=== PATIENT | male | born 1935 | race Caucasian/White ===

== ENCOUNTER 2018-08-05 13:19 | Inpatient (IN) ==
--- NOTE | 2018-08-05 13:52 | ED ---
HPI General Chief Complaint: Chest Pain Stated Complaint: chest pain/left arm numbness Time Seen by Provider: 08/05/18 13:33 Source: patient and family Mode of arrival: ambulatory Limitations: no limitations History of Present Illness HPI narrative: 83-year-old male the presents to the ED for evaluation of chest pain. Patient has had chest pain since today. Per patient he woke up with this. Patient has shortness of breath also with exertion. States having a history of heart disease in the past having had a stent as well as open heart surgery in the past. Last time 2011. He follows with the [facility] for his care. He took a baby aspirin today. Has a history of high blood pressure, diabetes and CHF. Per patient he has not gained any weight. He does not use oxygen at home. He denies smoking. States that the pain does radiate to his left arm and feels like a numbness or tingling. Denies any headache. No neck pain. No blurry vision or double vision. Denies any urinary or bowel movement issues. No fevers chills or sweats. Has not seen anybody for this. Per patient the pain is 6 out of 10. Feels more like a pressure than an actual pain. Like something sitting on his chest. No recent travel or surgeries. Related Data Allergies Allergy/AdvReac Type Severity Reaction Status Date / Time No Known Allergies Allergy Verified 08/05/18 13:37 Review of Systems ROS: all other systems reviewed are negative REPLACED BY [facility] Medical History Medical History CAD (coronary artery disease) (Acute) Cataract (Acute) HTN (hypertension) (Acute) High cholesterol (Acute) Surgical History Surgical History History of tonsillectomy (Acute) Hx of cardiac cath (Acute) S/P CABG x 5 (Acute) Stented coronary artery (Acute) Family History Family History Other Heart attack Social History Social History Substance History: No History of Abuse Second Hand Smoke Exposure: No Smoking Status: Former smoker Tobacco Type: Cigarettes How Often Do You Have a Drink Containing Alcohol: 2 to 3 times a week Recent Travel in [facility] within the Last 8 Weeks: No Recent Out of Country Travel within the Last 8 Weeks: No Immunization History Tetanus Immunization: <5 Years Exam Narrative Exam Narrative: GENERAL: Well appearing SKIN: Focused skin assessment warm/dry. HEAD: Atraumatic. Normocephalic. EYES: Pupils equal and round. No scleral icterus. No injection or drainage. ENT: No nasal bleeding or discharge. Mucous membranes pink and moist. Tongue is midline. No uvula deviation. NECK: Trachea midline. No JVD. CARDIOVASCULAR: Regular rate and rhythm. No murmur appreciated. RESPIRATORY: No accessory muscle use. Clear to auscultation. Breath sounds equal bilaterally. GASTROINTESTINAL: Abdomen soft, non-tender, nondistended. Hepatic and splenic margins not palpable. MUSCULOSKELETAL: No obvious deformities. No clubbing. No cyanosis. No edema. Full range of motion of the upper and lower extremities bilaterally. 2+ pulses bilaterally. NEUROLOGICAL: Awake and alert. No obvious cranial nerve deficits. Motor grossly within normal limits. Normal speech. PSYCHIATRIC: Appropriate mood and affect; insight and judgment normal. Course Initial Documented Vital Signs Pulse Rate 57 L 08/05/18 13:32 Respiratory Rate 20 08/05/18 13:32 Blood Pressure 179/84 H 08/05/18 13:32 Pulse Oximetry 97 08/05/18 13:32 Last Documented Vital Signs Temperature 98.1 F 08/05/18 13:40 Pulse Rate 54 L 08/05/18 16:00 Respiratory Rate 21 08/05/18 16:00 Blood Pressure 153/72 H 08/05/18 16:00 Pulse Oximetry 97 08/05/18 15:00 Medical Decision Making REJI Attestation REJI supervised visit: Yes Attestation: I, Dr. Cassidy, have reviewed the advance practice practitioner's documentation and am in agreement, met with the patient face to face, made the diagnosis, and the medical decision making was done by me. *My assessment and Findings: [-] Patient is a 82-year-old male who was evaluated for chest pain, placed in observation for further evaluation MDM Narrative Medical decision making narrative: 82-year-old male the presents to the ED for evaluation of chest pain. Patient was properly examined and was found to have signs and symptoms consistent with chest pain. Labs and imaging ordered. Labs and imaging showed what appears to be positive troponin. Case discussed with my attending who recommends admission to medicine for further workup. Patient agrees with this. Patient was admitted to Dr. Chris smith who agrees admission to his service. Patient was given nitroglycerin and aspirin by me and his symptoms have improved. He is currently chest pain-free. Medical Screen Exam Complete: Yes Emergency Medical Condition: Yes Differential Diagnosis Differential Diagnosis: Chest pain versus typical chest pain versus CHF versus ACS Medical Records Medical records reviewed: Yes I reviewed the patient's medical records. Lab Data Lab results reviewed: Yes I reviewed the patient's lab results. Result diagrams: 08/05/18 13:35 08/05/18 13:35 Lab Results 08/05/18 08/05/18 08/05/18 Range/Units 13:35 13:35 13:35 WBC 7.6 (4.0-11.0) th/mm3 RBC 4.02 L (4.50-5.90) mil/mm3 Hgb 12.8 L (13.0-17.0) gm/dL Hct 37.3 L (39.0-51.0) % MCV 92.8 (80.0-100.0) fL MCH 31.9 (27.0-34.0) pg MCHC 34.4 (32.0-36.0) % RDW 13.4 (11.6-17.2) % Plt Count 175 (150-450) th/mm3 MPV 9.1 (7.0-11.0) fL Neut % (Auto) 69.3 (16.0-70.0) % Lymph % (Auto) 15.7 (9.0-44.0) % [place] % (Auto) 11.5 H (0.0-8.0) % Eos % (Auto) 3.0 (0.0-4.0) % Baso % (Auto) 0.5 (0.0-2.0) % Neut # (Auto) 5.3 (1.8-7.7) th/mm3 Lymph # (Auto) 1.2 (1.0-4.8) th/mm3 [place] # (Auto) 0.9 (0.0-0.9) th/mm3 Eos # (Auto) 0.2 (0.0-0.4) th/mm3 Baso # (Auto) 0.0 (0.0-0.2) th/mm3 WBC Differential . Differential Comment Auto diff final Sodium 139 (136-145) meq/L Potassium 4.5 (3.5-5.1) meq/L Chloride 105 (98-107) meq/L Carbon Dioxide 25.8 (21.0-32.0) meq/L Anion Gap 8 (5-15) meq/L BUN 25 H (7-18) mg/dL Creatinine 1.95 H (0.60-1.30) mg/dL Estimated GFR 33 L (>89) mL/min Random Glucose 234 H (74-106) mg/dL Calcium 8.6 (8.5-10.1) mg/dL Total Bilirubin 0.4 (0.2-1.0) mg/dL AST 38 H (15-37) U/L ALT 62 (12-78) U/L Alkaline Phosphatase 120 H (45-117) U/L Total Creatine Kinase (39-308) U/L CK-MB (CK-2) (0.5-3.6) ng/mL Troponin I 0.09 H (0.02-0.05) ng/mL B-Natriuretic Peptide 63 (0-100) pg/mL Total Protein 7.0 (6.4-8.2) g/dL Albumin 3.7 (3.4-5.0) g/dL 08/05/18 Range/Units 13:35 WBC (4.0-11.0) th/mm3 RBC (4.50-5.90) mil/mm3 Hgb (13.0-17.0) gm/dL Hct (39.0-51.0) % MCV (80.0-100.0) fL MCH (27.0-34.0) pg MCHC (32.0-36.0) % RDW (11.6-17.2) % Plt Count (150-450) th/mm3 MPV (7.0-11.0) fL Neut % (Auto) (16.0-70.0) % Lymph % (Auto) (9.0-44.0) % [place] % (Auto) (0.0-8.0) % Eos % (Auto) (0.0-4.0) % Baso % (Auto) (0.0-2.0) % Neut # (Auto) (1.8-7.7) th/mm3 Lymph # (Auto) (1.0-4.8) th/mm3 [place] # (Auto) (0.0-0.9) th/mm3 Eos # (Auto) (0.0-0.4) th/mm3 Baso # (Auto) (0.0-0.2) th/mm3 WBC Differential Differential Comment Sodium (136-145) meq/L Potassium (3.5-5.1) meq/L Chloride (98-107) meq/L Carbon Dioxide (21.0-32.0) meq/L Anion Gap (5-15) meq/L BUN (7-18) mg/dL Creatinine (0.60-1.30) mg/dL Estimated GFR (>89) mL/min Random Glucose (74-106) mg/dL Calcium (8.5-10.1) mg/dL Total Bilirubin (0.2-1.0) mg/dL AST (15-37) U/L ALT (12-78) U/L Alkaline Phosphatase (45-117) U/L Total Creatine Kinase 298 (39-308) U/L CK-MB (CK-2) 2.7 (0.5-3.6) ng/mL Troponin I (0.02-0.05) ng/mL B-Natriuretic Peptide (0-100) pg/mL Total Protein (6.4-8.2) g/dL Albumin (3.4-5.0) g/dL Imaging Data Attestation: I personally reviewed and interpreted this imaging study as follows : Radiologist's impression: Chest X-Ray 08/05/18 13:37 CONCLUSION: Postoperative CABG. No acute findings. ECG Data Attestation: I personally reviewed and interpreted this ECG as follows: Interpretation: EKG shows sinus rhythm with no sign of acute ischemia and arrhythmia read by me and attending. No sign of ST elevations. Discharge Plan Discharge Disposition Patient Disposition: 30 Still Patient Discharge Details Diagnosis: Chest pain, Elevated troponin Physicians Team ED Provider: Manuel Cassidy ED Midlevel Provider: Hans Feliciano Primary Care Provider: [facility]ician [place] Attending Provider: Alexis Enamorado Other Providers: Minor,Jose Status ED Status: Admitted Observation Patient
[2018-08-05 14:03] LABS: Baso % (Auto) 0.5 % (0.0-2.0); Eos # (Auto) 0.2 th/mm3 (0.0-0.4); Hematocrit 37.3 % (39.0-51.0); Hemoglobin 12.8 gm/dL (13.0-17.0); Lymph # (Auto) 1.2 th/mm3 (1.0-4.8); Lymph % (Auto) 15.7 % (9.0-44.0); Mean Corpuscular HGB Conc 34.4 % (32.0-36.0); Mean Corpuscular Hemoglobin 31.9 pg (27.0-34.0); Mean Corpuscular Volume 92.8 fL (80.0-100.0); Mean Platelet Volume 9.1 fL (7.0-11.0); Mono # (Auto) 0.9 th/mm3 (0.0-0.9); Mono % (Auto) 11.5 % (0.0-8.0); Neut # (Auto) 5.3 th/mm3 (1.8-7.7); Neut % (Auto) 69.3 % (16.0-70.0); Platelet Count 175 th/mm3 (150-450); Red Blood Count 4.02 mil/mm3 (4.50-5.90); Red Cell Distribution Width 13.4 % (11.6-17.2); White Blood Count 7.6 th/mm3 (4.0-11.0)
[2018-08-05 14:32] LABS: Alanine Aminotransferase 62 U/L (12-78); Albumin 3.7 g/dL (3.4-5.0); Anion Gap 8 meq/L (5-15); Aspartate Aminotransferase 38 U/L (15-37); Blood Urea Nitrogen 25 mg/dL (7-18); Calcium 8.6 mg/dL (8.5-10.1); Carbon Dioxide 25.8 meq/L (21.0-32.0); Chloride 105 meq/L (98-107); Glomerular Filtration Rate 33 mL/min (>89); Glucose,Random 234 mg/dL (74-106); Potassium 4.5 meq/L (3.5-5.1); Sodium 139 meq/L (136-145)
[2018-08-05 14:35] LABS: Alkaline Phosphatase 120 U/L (45-117); Creatine Kinase 298 U/L (39-308); Troponin I 0.09 ng/mL (0.02-0.05)
--- NOTE | 2018-08-05 14:40 | XR ---
EXAM DATE: 08/05/2018 2:36 PM EST AGE/SEX: 82 years / Male INDICATIONS: Chest pain CLINICAL DATA: This is the patient's initial encounter. Patient reports that signs and symptoms have been present for 1 day and indicates a pain score of 0/10. MEDICAL/SURGICAL HISTORY: Diabetes mellitus type II. CABG. COMPARISON: . FINDINGS: A single AP view of the chest demonstrates the lungs to be symmetrically aerated without evidence of mass, infiltrate or effusion. The cardiomediastinal contours are unremarkable. Previous CABG. Osse[place] s structures are intact. CONCLUSION: Postoperative CABG. No acute findings. Electronically signed by: Hardeep Marroquin MD 08/05/2018 2:39 PM EST
[2018-08-05 14:57] LABS: Creatine Kinase MB 2.7 ng/mL (0.5-3.6)
[2018-08-05] MEDS ORDERED: Heparin Drip 25,000 UNIT/250 ML BAG IV.CONT PRN (15:59)
[2018-08-05] MEDS ORDERED: Heparin 10,000 UNITS/10 ML Vial (for IV use) IV.PUSH STA (15:59)
--- NOTE | 2018-08-05 16:06 | P.HP ---
History of Present Illness Primary Care Physician: Physician [facility] History of Present Illness: 82-year-old white male being admitted for atypical angina. Patient was in his usual state of health until sometime earlier this morning sitting on his porch when he began experiencing a gradual onset of worsening chest pressure. Says it eased up and then came back while he was driving later in the day around noon. Associated with left arm tingling. Thus decided come to the emergency department with his . Says that after he got aspirin and nitroglycerin the symptoms went away today in the ER. Says that it is worse the pressure sensation was 8/10 discomfort. Denies any nausea vomiting. Only reports shortness of breath with the episode. Says that the symptoms are similar to the ones he had when he had his bypass that he had back in 1989 says at this time upon my evaluation he is asymptomatic. Reports being compliant with his medications including a baby aspirin on a daily basis. Says that he has had a 5 vessel CABG done in 1989 and then 2 stents placed in 2011 in [place], [facility] to LAD, SVG OM.Patient does endorse that he has some level of chronic kidney impairment. 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 Denies ever being diagnosed with heart failure. In the emergency department he was noted to have a elevated troponin of 0.09, his creatinine was also elevated at 1.95. EKG upon my independent review shows T wave inversions in 2 3 and aVF. Chest x-ray which independent review shows no acute findings. Review of Systems All other systems reviewed negative except as stated in HPI PMFSH - History History Provided By: Patient - Medical History Medical History: Medical History (Last Reviewed 08/05/18 @ 16:03 by Alexis Enamorado MD) CAD (coronary artery disease) Cataract HTN (hypertension) High cholesterol - Surgical History Surgical History: Surgical History (Last Reviewed 08/05/18 @ 16:03 by Alexis Enamorado MD) History of tonsillectomy Hx of cardiac cath S/P CABG x 5 Stented coronary artery - Family History Family History: Family History (Last Updated 08/05/18 @ 16:03 by Alexis Enamorado MD) Other Heart attack - Social History I have reviewed the patient's Social History: Yes - Tobacco History Second Hand Smoke Exposure: No Tobacco Use In Past 30 Days: No Smoking Status: Former smoker Tobacco Type: Cigarettes - Alcohol History How Often Do You Have a Drink Containing Alcohol: 2 to 3 times a week - Substance Use History Substance History: No History of Abuse - Travel History Recent Travel in the [place] Within the Last 8 Weeks: No Recent Travel Out of the Country Within the Last 8 Weeks: No - Immunization History Tetanus Immunization: <5 Years Medications and Allergies Active Medications: Active Medications Aspirin (Aspirin Chew) 81 mg PO DAILY NAVARRO Sodium Chloride (Ns Flush) 2 ml IV.FLUSH UNSCH PRN PRN Reason: FLUSH AFTER USING IV ACCESS Last Admin: 08/05/18 14:00 Dose: 2 ml Sodium Chloride (Ns Flush) 2 ml IV.FLUSH PRN PRN PRN Reason: FLUSH AFTER USING IV ACCESS Sodium Chloride (Ns Flush) 2 ml IV.FLUSH BID NAVARRO Allergies Allergy/AdvReac Type Severity Reaction Status Date / Time No Known Allergies Allergy Verified 08/05/18 13:37 Exam Vital signs: Vital Signs 08/05/18 13:32 08/05/18 13:37 08/05/18 13:40 Temperature 98.1 F Pulse Rate 57 L 57 L Respiratory Rate 20 15 Blood Pressure 179/84 H 179/84 H Pulse Oximetry 97 95 95 08/05/18 14:01 Temperature Pulse Rate 61 Respiratory Rate 18 Blood Pressure 162/65 H Pulse Oximetry 95 Intake & Output 08/04/18 08/05/18 08/05/18 18:59 06:59 18:59 Weight 95.443 kg Narrative: VS: afebrile GENERAL: Well-nourished elderly male, sitting up in a reclining position in bed , no acute distress SKIN: Warm and dry. EYES: No scleral icterus. No injection or drainage. ENT: No nasal bleeding or discharge. Mucous membranes pink and moist. CARDIOVASCULAR: Regular rate and rhythm. no murmurs RESPIRATORY: No accessory muscle use. Clear to auscultation. Breath sounds equal bilaterally. GASTROINTESTINAL: Abdomen soft, obese habitus Extremities: No clubbing, cyanosis, or edema. No obvious deformities. MUSCULOSKELETAL: adequate muscle bulk and tone for age and habitus NEUROLOGICAL: Awake and alert. No obvious cranial nerve deficits. No facial droop nor slurred speech noted. PSYCHIATRIC: Appropriate mood and affect; insight and judgment normal. Results - Labs CBC & Chem 7: 08/05/18 13:35 08/05/18 13:35 Labs: Laboratory Results - last 24 hr 08/05/18 08/05/18 08/05/18 13:35 13:35 13:35 WBC 7.6 RBC 4.02 L Hgb 12.8 L Hct 37.3 L MCV 92.8 MCH 31.9 MCHC 34.4 RDW 13.4 Plt Count 175 MPV 9.1 Neut % (Auto) 69.3 Lymph % (Auto) 15.7 [place] % (Auto) 11.5 H Eos % (Auto) 3.0 Baso % (Auto) 0.5 Neut # (Auto) 5.3 Lymph # (Auto) 1.2 [place] # (Auto) 0.9 Eos # (Auto) 0.2 Baso # (Auto) 0.0 WBC Differential . Differential Comment Auto diff final Sodium 139 Potassium 4.5 Chloride 105 Carbon Dioxide 25.8 Anion Gap 8 BUN 25 H Creatinine 1.95 H Estimated GFR 33 L Random Glucose 234 H Calcium 8.6 Total Bilirubin 0.4 AST 38 H ALT 62 Alkaline Phosphatase 120 H Total Creatine Kinase CK-MB (CK-2) Troponin I 0.09 H B-Natriuretic Peptide 63 Total Protein 7.0 Albumin 3.7 08/05/18 13:35 WBC RBC Hgb Hct MCV MCH MCHC RDW Plt Count MPV Neut % (Auto) Lymph % (Auto) [place] % (Auto) Eos % (Auto) Baso % (Auto) Neut # (Auto) Lymph # (Auto) [place] # (Auto) Eos # (Auto) Baso # (Auto) WBC Differential Differential Comment Sodium Potassium Chloride Carbon Dioxide Anion Gap BUN Creatinine Estimated GFR Random Glucose Calcium Total Bilirubin AST ALT Alkaline Phosphatase Total Creatine Kinase 298 CK-MB (CK-2) 2.7 Troponin I B-Natriuretic Peptide Total Protein Albumin - Imaging Impressions Chest X-Ray 08/05/18 13:37 CONCLUSION: Postoperative CABG. No acute findings. Caprini VTE Risk Assessment Caprini VTE Risk Assessment: Moderate/High Risk (score >= 2) Caprini Risk Assessment Model: Point Value = 1 Point Value = 2 Point Value = 3 Point Value = 5 Age 41-60 Minor surgery BMI > 25 kg/m2 Swollen legs Varicose veins or History of unexplained or recurrent spontaneous Oral contraceptives or hormone replacement Sepsis (< 1 month) Serious lung disease, including pneumonia (< 1 month) Abnormal pulmonary function Acute myocardial infarction Congestive heart failure (< 1 month) History of inflammatory bowel disease Medical patient at bed rest Age 61-74 Arthroscopic surgery Major open surgery (> 45 min) Laparoscopic surgery (> 45 min) Malignancy Confined to bed (> 72 hours) Immobilizing plaster cast Central venous access Age >= 75 History of VTE Family history of VTE Factor V Leiden Prothrombin [id number] Lupus anticoagulant Anticardiolipin antibodies Elevated serum homocysteine Heparin-induced thrombocytopenia Other congenital or acquired thrombophilia Stroke (< 1 month) Elective arthroplasty Hip, pelvis, or leg fracture Acute spinal cord injury (< 1 month) Prophylaxis Regimen: Total Risk Factor Score Risk Level Prophylaxis Regimen 0-1 Low Early ambulation 2 Moderate Order ONE of the following: *Sequential Compression Device (SCD) *Heparin 5000 units SQ BID 3-4 Higher Order ONE of the following medications: *Heparin 5000 units SQ TID *Enoxaparin/Lovenox 40 mg SQ daily (WT < 150 kg, CrCl > 30 mL/min) *Enoxaparin/Lovenox 30 mg SQ daily (WT < 150 kg, CrCl > 10-29 mL/min) *Enoxaparin/Lovenox 30 mg SQ BID (WT < 150 kg, CrCl > 30 mL/min) AND/OR *Sequential Compression Device (SCD) 5 or more Highest Order ONE of the following medications: *Heparin 5000 units SQ TID (Preferred with Epidurals) *Enoxaparin/Lovenox 40 mg SQ daily (WT < 150 kg, CrCl > 30 mL/min) *Enoxaparin/Lovenox 30 mg SQ daily (WT < 150 kg, CrCl > 10-29 mL/min) *Enoxaparin/Lovenox 30 mg SQ BID (WT < 150 kg, CrCl > 30 mL/min) AND *Sequential Compression Device (SCD) Assessment and Plan - Plan 82-year-old white male being admitted for atypical angina. Significant CAD hx. Atypical angina/chest pressure With elevated troponins and inferior T wave inversions and renal impairment, it is hard to decipher true acute element of ACS. But given his significant cardiac history I will start him on heparin drip. Continue aspirin, continue statin -echo, trend troponins Renal insufficiency Hard to decipher acute versus chronic element, no baseline evident at this time Albumin infusions for now Diabetes Sliding scale with Accu-Cheks History of asthma Albuterol as needed for wheezing/shortness of breath Obstructive sleep apnea CPAP nighttime settings at 11 mmHg to bring remaining home medications Heparin drip
[2018-08-05] MEDS ORDERED: Dextrose 50% in Water 50 ML Vial IV.PUSH PRN (16:12)
[2018-08-05 17:27] LABS: Prothrombin Time 10.4 sec (9.8-11.6)
[2018-08-05] MEDS: Insulin NovoLOG Aspart Correctional Sugar Inj SQ SCH ×2 (17:51→22:27)
[2018-08-05] MEDS: Metoprolol Tartrate 50 MG Tablet PO SCH (20:31)
[2018-08-05] MEDS: Albumin Human 25% Inj 50 ML IV.SIG SCH (20:31)
[2018-08-05 21:36] LABS: Activated Partial Thrombo Time 66.9 sec (23.4-31.7); INR 1.1 Ratio; Prothrombin Time 11.2 sec (9.8-11.6)
[2018-08-06] MEDS ORDERED: hydrALAZINE 25 MG Tablet PO ONE (00:03)
[2018-08-06] MEDS ORDERED: Morphine Inj 4 MG/ML Vial IV.PUSH ONE (01:45)
[2018-08-06] MEDS ORDERED: Morphine Sulfate Inj 2 MG/ML Vial IV.PUSH PRN (03:39)
[2018-08-06 04:37] LABS: Hematocrit 34.7 % (39.0-51.0); Hemoglobin 12.1 gm/dL (13.0-17.0); Mean Corpuscular Hemoglobin 31.9 pg (27.0-34.0); Mean Corpuscular Volume 91.2 fL (80.0-100.0); Mean Platelet Volume 9.4 fL (7.0-11.0); Platelet Count 180 th/mm3 (150-450); Red Cell Distribution Width 12.9 % (11.6-17.2); White Blood Count 10.5 th/mm3 (4.0-11.0)
[2018-08-06 05:05] LABS: Calcium 8.7 mg/dL (8.5-10.1); Carbon Dioxide 25.9 meq/L (21.0-32.0); Potassium 4.1 meq/L (3.5-5.1)
[2018-08-06] MEDS: Albumin Human 25% Inj 50 ML IV.SIG SCH ×2 (07:50→18:24)
--- NOTE | 2018-08-06 08:30 | P.CONCA ---
History of Present Illness Service: cardiology Consult date: 08/06/18 Reason for Consult: chest pain, abnormal EKG, elev trop Primary Care Provider: [facility] Chief Complaint: chest pain History of Present Illness: 82 yo M with CAD, CABG x 5 (1989) with stenting x 2 (2011 in [place], [place]), CKD, DMII, HTN and sleep apnea who presents after experiencing 2 episodes of chest pain yesterday. First episode occurred at rest while sitting on his porch with progressive worsening and L arm tingling. Symptoms subsided but then returned later in the day while driving. Symptoms are reminiscent of his prior cardiac event in 1989. Chest pain resolved with asa and nitro. troponin levels positive and rising (0.09-->2.17 --> 7.79). EKG shows T wave inversions to anterior and inferior leads. He is currently resting comfortably and remains npo. Review of Systems All other systems reviewed negative except as stated in HPI [facility] - History History Provided By: Patient - Medical History Medical History: Medical History (Last Reviewed 08/05/18 @ 16:03 by Alexis Enamorado MD) CAD (coronary artery disease) Cataract HTN (hypertension) High cholesterol - Surgical History Surgical History: Surgical History (Last Reviewed 08/05/18 @ 16:03 by Alexis Enamorado MD) History of tonsillectomy Hx of cardiac cath S/P CABG x 5 Stented coronary artery - Family History Family History: Family History (Last Updated 08/05/18 @ 16:03 by Alexis Enamorado MD) Other Heart attack - Tobacco History Second Hand Smoke Exposure: Yes Tobacco Use In Past 30 Days: No Smoking Status: Former smoker Tobacco Type: Cigarettes - Alcohol History How Often Do You Have a Drink Containing Alcohol: 2 to 3 times a week - Substance Use History Substance History: No History of Abuse - Travel History Recent Travel in the [place] Within the Last 8 Weeks: No Recent Travel Out of the Country Within the Last 8 Weeks: No - Immunization History Tetanus Immunization: <5 Years Hx Influenza Vaccine This Season: Yes Medications and Allergies Allergies Allergy/AdvReac Type Severity Reaction Status Date / Time No Known Allergies Allergy Verified 08/05/18 13:37 Home Medications Medication Instructions Recorded Confirmed Type aspirin 81 mg PO DAILY 08/05/18 08/05/18 History Active Medications: Active Medications Albuterol (Ventolin Hfa Inh) 2 puff INH Q4HR PRN PRN Reason: WHEEZING Aspirin (Aspirin Chew) 81 mg PO DAILY [facility] Atorvastatin Calcium (Lipitor) 20 mg PO HS [facility] Last Admin: 08/05/18 20:31 Dose: 20 mg Dextrose (D50w Vial) 50 ml IV.PUSH UNSCH PRN PRN Reason: PER HYPOGLYCEMIA PROTOCOL Glucagon (Glucagon Inj) 1 mg OTHER PRN PRN PRN Reason: for Hypoglycemia Protocol Heparin Sodium/Dextrose (Heparin/D5w 25,000 U/250 Ml) 25,000 unit in 250 mls @ 10 mls/hr IV.CONT TITRATE PRN; Protocol PRN Reason: Per Protocol Last Admin: 08/05/18 16:49 Dose: 1,000 units/hr, 10 mls/hr Albumin Human (Flexbumin 25% Inj) 50 mls @ 60 mls/hr IV.SIG Q12H [facility] Last Admin: 08/06/18 07:50 Dose: Not Given Insulin Aspart (Novolog Insulin Correctional Sugar Inj) 0 unit SQ ACHS [facility]; Protocol Last Admin: 08/05/18 22:27 Dose: 5 unit Metoprolol Tartrate (Lopressor) 50 mg PO BID [facility] Last Admin: 08/05/18 20:31 Dose: 50 mg Morphine Sulfate (Morphine Inj) 2 mg IV.PUSH Q3H PRN PRN Reason: CHEST PAIN Sodium Chloride (Ns Flush) 2 ml IV.FLUSH PRN PRN PRN Reason: FLUSH AFTER USING IV ACCESS Sodium Chloride (Ns Flush) 2 ml IV.FLUSH BID [facility] Last Admin: 08/05/18 21:07 Dose: Not Given Exam Vital signs: Vital Signs 08/05/18 13:32 08/05/18 13:37 08/05/18 13:40 Temperature 98.1 F Pulse Rate 57 L 57 L Respiratory Rate 20 15 Blood Pressure 179/84 H 179/84 H Pulse Oximetry 97 95 95 08/05/18 14:00 08/05/18 14:01 08/05/18 15:00 Temperature Pulse Rate 52 L 61 54 L Respiratory Rate 18 18 16 Blood Pressure 133/63 162/65 H 170/77 H Pulse Oximetry 98 95 97 08/05/18 16:00 08/05/18 17:33 08/05/18 20:00 Temperature 97.8 F 98.9 F Pulse Rate 54 L 52 L 67 Respiratory Rate 21 18 15 Blood Pressure 153/72 H 181/79 H 178/87 H Pulse Oximetry 97 97 08/06/18 00:00 08/06/18 01:25 08/06/18 01:54 Temperature 97.5 F L Pulse Rate 68 53 L Respiratory Rate 17 16 16 Blood Pressure 190/83 H 123/60 Pulse Oximetry 97 95 Intake & Output 08/05/18 08/06/18 08/06/18 18:59 06:59 18:59 Intake Total 530 / 530 Output Total 850 / 850 Balance -320 / -320 Weight 94.347 kg 100 kg Intake: IV 50 / 50 Flexbumin 25% Inj 50 ML @ 60 50 / 50 mls/hr IV.SIG Q12H [facility] Rx#: [id number] Oral 480 / 480 Output: Urine 850 / 850 Other: # Voids 0 4 Weight On Admission 94.347 kg Narrative: GENERAL: SKIN: Warm and dry. HEAD: Normocephalic. EYES: No scleral icterus. No injection or drainage. NECK: Supple, trachea midline. No JVD or lymphadenopathy. CARDIOVASCULAR: Regular rate and rhythm with soft murmur, gallops, or rubs. RESPIRATORY: Breath sounds equal bilaterally. No accessory muscle use. GASTROINTESTINAL: Abdomen soft, non-tender, nondistended. MUSCULOSKELETAL: No cyanosis, or edema. . Results 08/06/18 04:00 08/06/18 01:22 Cardiac Enzymes 08/05/18 08/05/18 08/05/18 Range/Units 13:35 13:35 13:35 AST 38 H (15-37) U/L CK-MB (CK-2) 2.7 (0.5-3.6) ng/mL Troponin I 0.09 H (0.02-0.05) ng/mL B-Natriuretic Peptide 63 (0-100) pg/mL 08/05/18 08/05/18 08/06/18 Range/Units 13:35 20:50 01:22 AST (15-37) U/L CK-MB (CK-2) (0.5-3.6) ng/mL Troponin I 0.09 H 2.17 H* Cancelled (0.02-0.05) ng/mL B-Natriuretic Peptide (0-100) pg/mL 08/06/18 Range/Units 01:22 AST (15-37) U/L CK-MB (CK-2) (0.5-3.6) ng/mL Troponin I 7.79 H* (0.02-0.05) ng/mL B-Natriuretic Peptide (0-100) pg/mL Coagulation 08/05/18 08/05/18 08/05/18 Range/Units 13:35 13:35 20:50 PT 10.4 11.2 (9.8-11.6) sec APTT 28.0 66.9 H D (23.4-31.7) sec B-Natriuretic Peptide 63 (0-100) pg/mL 08/06/18 Range/Units 04:00 PT (9.8-11.6) sec APTT 48.5 H D (23.4-31.7) sec B-Natriuretic Peptide (0-100) pg/mL CBC 08/05/18 08/06/18 Range/Units 13:35 04:00 WBC 7.6 10.5 (4.0-11.0) th/mm3 RBC 4.02 L 3.80 L (4.50-5.90) mil/mm3 Hgb 12.8 L 12.1 L (13.0-17.0) gm/dL Hct 37.3 L 34.7 L (39.0-51.0) % Plt Count 175 180 (150-450) th/mm3 Neut # (Auto) 5.3 (1.8-7.7) th/mm3 Lymph # (Auto) 1.2 (1.0-4.8) th/mm3 [place] # (Auto) 0.9 (0.0-0.9) th/mm3 Eos # (Auto) 0.2 (0.0-0.4) th/mm3 Baso # (Auto) 0.0 (0.0-0.2) th/mm3 Comprehensive Metabolic Panel 08/05/18 08/06/18 Range/Units 13:35 01:22 Sodium 139 142 (136-145) meq/L Potassium 4.5 4.1 (3.5-5.1) meq/L Chloride 105 106 (98-107) meq/L Carbon Dioxide 25.8 25.9 (21.0-32.0) meq/L BUN 25 H 24 H (7-18) mg/dL Creatinine 1.95 H 1.98 H (0.60-1.30) mg/dL Calcium 8.6 8.7 (8.5-10.1) mg/dL AST 38 H (15-37) U/L ALT 62 (12-78) U/L Alkaline Phosphatase 120 H (45-117) U/L Total Protein 7.0 (6.4-8.2) g/dL Albumin 3.7 (3.4-5.0) g/dL Intake and Output 08/05/18 08/06/18 08/06/18 22:59 06:59 14:59 Intake Total 50 / 50 480 / 480 Output Total 850 / 850 Balance 50 / 50 -370 / -370 Intake: IV 50 / 50 Flexbumin 25% Inj 50 ML @ 60 50 / 50 mls/hr IV.SIG Q12H [facility] Rx#: [id number] Oral 480 / 480 Output: Urine 850 / 850 Other: # Voids 0 4 Weight 94.347 kg 100 kg Weight On Admission 94.347 kg - Imaging and Cardiology Imaging: Impressions Chest X-Ray 08/05/18 13:37 CONCLUSION: Postoperative CABG. No acute findings. Assessment and Plan - Assessment (1) Chest pain Code(s): R07.9 - Chest pain, unspecified Status: Acute (2) Elevated troponin Code(s): R74.8 - Abnormal levels of other serum enzymes Status: Acute - Plan 82 yo M with CAD, CABG x 5 (1989) with stenting x 2 (2011 in [place], [place]), CKD, DMII, HTN and sleep apnea who presents after experiencing 2 episodes of chest pain yesterday. First episode occurred at rest while sitting on his porch with progressive worsening and L arm tingling. Symptoms subsided but then returned later in the day while driving. Symptoms are reminiscent of his prior cardiac event in 1989. Chest pain resolved with asa and nitro. troponin levels positive and rising (0.09-->2.17 --> 7.79). EKG shows T wave inversions to anterior and inferior leads. He is currently resting comfortably and remains npo. unstable angina- positive troponin levels with ischemic EKG findings will proceed with cardiac catheterization this morning, keep npo +soft cardiac murmur, stat echo. pre-hydrate with IV fluids prior to [facility] - Attending Attestation NSTEMI CKD [facility] today Gentle hydration. Minimize contrast. Potential risk for contrast-induced nephropathy discussed. (1) Chest pain Qualifiers: Chest pain type: unspecified Qualified Code(s): R07.9 - Chest pain, unspecified
[2018-08-06] MEDS ORDERED: Sod Chloride 0.9% Inj 1,000 ML IV.CONT SCH (09:00)
[2018-08-06] MEDS: Insulin NovoLOG Aspart Correctional Sugar Inj SQ SCH ×4 (09:18→22:20)
[2018-08-06] MEDS: Metoprolol Tartrate 50 MG Tablet PO SCH ×2 (09:40→22:20)
--- NOTE | 2018-08-06 09:47 | ECHRPT ---
Indication: CHEST PAIN CONCLUSIONS The left ventricular systolic function is normal with an estimated ejection fraction in the range of 55-60%. Normal left ventricular size. Wall thickness is normal. No regional wall motion abnormalities are present. Trace mitral valve regurgitation. Diffuse calcification of the aortic valve. Trace aortic valve regurgitation. Mild thickening of the tricuspid valve leaflets. There is trace tricuspid valve regurgitation. The estimated pulmonary arterial pressure is 34.4 mmHg. The inferior vena cava was not well visualized. BP: / HR: Rhythm: Sinus MEASUREMENTS (Male / Female) Normal Values Technical Quality:Fair 2D ECHO LV Diastolic Diameter PLAX 5.4 cm 4.2 - 5.9 / 3.9 - 5.3 cm LV Systolic Diameter PLAX 4.0 cm IVS Diastolic Thickness 1.2 cm 0.6 - 1.0 / 0.6 - 0.9 cm LVPW Diastolic Thickness 1.2 cm 0.6 - 1.0 / 0.6 - 0.9 cm LV Relative Wall Thickness 0.4 LVOT Diameter 1.7 cm LA Systolic Diameter LX 4.0 cm 3.0 - 4.0 / 2.7 - 3.8 cm LV Ejection Fraction MOD 4C 58.9 % LV Ejection Fraction 4C AL 60.3 % M-MODE Aortic Root Diameter MM 3.0 cm AV Cusp Separation MM 1.7 cm DOPPLER AV Peak Velocity 178.0 cm/s AV Peak Gradient 12.7 mmHg AI Peak Velocity 330.0 cm/s AI Peak Gradient 43.6 mmHg AI Pressure Half Time 628.0 ms LVOT Peak Velocity 93.3 cm/s LVOT Peak Gradient 3.5 mmHg AV Area Cont Eq pk 1.2 cm MV Area PHT 3.5 cm Mitral E Point Velocity 123.0 cm/s Mitral A Point Velocity 64.2 cm/s Mitral E to A Ratio 1.9 LV E' Lateral Velocity 5.9 cm/s Mitral E to LV E' Lateral Ratio 20.7 LV E' Septal Velocity 5.9 cm/s Mitral E to LV E' Septal Ratio 20.7 TR Peak Velocity 247.0 cm/s TR Peak Gradient 24.4 mmHg Right Atrial Pressure 10.0 mmHg Pulmonary Artery Systolic Pressu 34.4 mmHg Right Ventricular Systolic Press 34.4 mmHg PV Peak Velocity 92.3 cm/s PV Peak Gradient 3.4 mmHg FINDINGS LEFT VENTRICLE The left ventricular systolic function is normal with an estimated ejection fraction in the range of 55-60%. Normal left ventricular size. Wall thickness is normal. No regional wall motion abnormalities are present. RIGHT VENTRICLE Normal right ventricular size and systolic function. LEFT ATRIUM The left atrial size is normal. RIGHT ATRIUM The right atrial size is normal. ATRIAL SEPTUM Normal atrial septal thickness without atrial level shunting by limited color doppler interrogation. AORTA The aortic root and proximal ascending aorta are normal in size on limited imaging. MITRAL VALVE Structurally normal mitral valve. Trace mitral valve regurgitation. AORTIC VALVE Trileaflet aortic valve. Diffuse calcification of the aortic valve. Trace aortic valve regurgitation. TRICUSPID VALVE Mild thickening of the tricuspid valve leaflets. There is trace tricuspid valve regurgitation. The estimated pulmonary arterial pressure is 34.4 mmHg. PULMONARY VALVE No pulmonary valve regurgitation or stenosis. VESSELS The inferior vena cava was not well visualized. PERICARDIUM No pericardial effusion. Jose Berg MD, FACC (Electronically Signed) Final Date:06 August 2018 09:46
--- NOTE | 2018-08-06 12:00 | ECG ---
Date Performed: 08/06/2018 Time Performed: 01:24:56 PTAGE: 82 years EKG: SINUS BRADYCARDIA ST DEVIATION AND MODERATE T-WAVE ABNORMALITY, CONSIDER LATERAL ISCHEMIA S T DEVIATION AND MODERATE T-WAVE ABNORMALITY, CONSIDER INFERIOR ISCHEMIA ABNORMAL ECG Since the PREVIOUS TRACING , no significant change noted DOCTOR: Malik Vaca Interpretating Date/Time 08/06/2018 11:59:40
[2018-08-06] MEDS ORDERED: Heparin/NS PF Inj 1,000 ML ONE (12:12)
[2018-08-06] MEDS ORDERED: fentaNYL Citrate Inj 100 MCG/2 ML Ampul ONE (12:12)
[2018-08-06] MEDS ORDERED: Heparin 10,000 UNITS/10 ML Vial (for IV use) ONE (12:13)
[2018-08-06] MEDS ORDERED: Lidocaine PF 1% Inj 30 ML Vial ONE (12:15)
--- NOTE | 2018-08-06 12:24 | ECG ---
Date Performed: 08/05/2018 Time Performed: 13:28:20 PTAGE: 82 years EKG: SINUS BRADYCARDIA MODERATE T-WAVE ABNORMALITY, CONSIDER INFERIOR ISCHEMIA ABNORMAL ECG NO PREVIOUS TRACING DOCTOR: Malik Vaca Interpretating Date/Time 08/06/2018 12:23:01
[2018-08-06] MEDS ORDERED: Adenosine Inj 6 MG/2 ML Syringe IV.PUSH ONE (12:37)
[2018-08-06] MEDS ORDERED: Atropine Inj 1 MG/ML Vial IV.PUSH PRN (12:56)
[2018-08-06] MEDS ORDERED: Bacitracin Oint 0.9 GM Packet TOPICAL ONE (12:56)
[2018-08-06] MEDS ORDERED: Misc Info for Pharmacy OTHER STA (12:56)
[2018-08-06] MEDS ORDERED: Lidocaine 1% Inj 50 ML Vial INFILTRATN PRN (12:56)
--- NOTE | 2018-08-06 13:06 | P.PCN ---
Date of procedure: 08/06/18 Pre-op diagnosis: Non-ST elevation myocardial infarction Procedure: certified solid waste facility operator: Parish Berg MD Total contrast administered: 80 cc Procedures performed: 1. Fluoroscopy with interpretation 2. Coronary angiography 3. Coronary artery bypass graft angiography 4. Percutaneous coronary intervention with drug-eluting stent to the saphenous vein graft to left anterior descending coronary artery 5. Percutaneous coronary intervention with drug-eluting stent to the saphenous vein graft to the first obtuse marginal branch Methods: Risks, benefits, and alternatives were discussed with the patient. Patient understood and consented to the procedure. Patient was brought into the cardiac catheterization lab and placed on the catheterization table. The patient's right wrist was prepped and draped in a sterile fashion. The right wrist was anesthetized with 1% lidocaine. Right wrist was cannulated and a 6 [place] 11 cm sheath was placed without difficulty. 200 mcg of intra-arterial nitroglycerin was administered and 5000 units of intravenous heparin. Coronary angiography: The left main coronary artery was selectively engaged with a 5 [place] JL 3.5 Anne catheter. The right coronary circulation was selectively engaged with a 5 [place] JR 5 Anne catheter. 1. Left main coronary artery has 50% diffuse stenosis 2. Left anterior descending coronary has doubly calcified 90% stenosis present. Mid segment is occluded. There is faint visualization of competitive flow in the diagonal branch. 3. Left circumflex is occluded proximally 4. The mid right coronary is 100% occluded but fed via right to right collaterals. Coronary artery bypass graft angiography: 1. The left internal mammary to the diagonal branch is widely patent 2. The saphenous vein graft to left anterior descending coronary artery has a stent present in the proximal segment with mild to moderate in-stent restenosis. The mid segment of the left anterior descending coronary bypass graft is a 90% eccentric stenosis present. 3. The saphenous vein graft to the obtuse marginal branch has an 80% tubular stenosis present the obtuse marginal branch is widely patent. 4. The saphenous vein graft to the right coronary artery is 100% occluded. Percutaneous coronary intervention: The saphenous vein graft to left anterior descending coronary artery was selectively engaged with an 6 [place] LCB guide catheter. A 0.014 inch 180 cm Terumo run through wire was navigated down to the distal left anterior descending coronary artery. A 4.0 x 18 mm Rx resolute Ke drug-eluting stent was advanced onto the mid segment and deployed after administration of intracoronary adenosine. The proximal stent was also postdilated to 16 sera. Repeat angiography showed no residual stenosis and KATE-3 flow. Next, attention was directed towards a saphenous vein graft to the first obtuse marginal branch. The same catheter wire were advanced onto the distal first obtuse marginal branch and a 3.0 x 18 mm Rx resolute [place] drug-eluting stent was deployed in the mid segment. Repeat angiography showed no residual stenosis KATE-3 flow. Next Conclusions: 1. Severe samish three-vessel coronary artery disease 2. 3 of 4 visualized coronary bypass grafts are patent 3. Percutaneous coronary intervention to the saphenous vein graft to left anterior descending and saphenous vein graft to the obtuse marginal branches with drug-eluting stents Plan: Patient be continued on guideline directed medical therapy. We will add long- acting nitrate. Hopefully this will translate well to symptomatic improvement. Patient be monitored closely and hopeful for discharge tomorrow.
--- NOTE | 2018-08-06 13:38 | CATHPROC ---
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 Equipment Time Metal Refiner Description Size Mfg Part Number Used/Scraped TRANSDUCER, TRUWAVE [id number] 12:14 [employer] [id number] * Used W/STOCKCOCK *[id number] *[id number] [id number] *[id number] [id number] *[id number] *[id number] [id number] *[id number] 12:14 Eat BLANKET,WARM AIR CCL * Used *[id number] 12:14 Eat PACK, CCL CUSTOM * Used *[id number] 12:14 Eat SUPPORT, ARTERIAL ADULT [id number] *[id number] Used [id number] 12:52 MEDTRONIC STENT, 3.0 18MM MONCHO 3.0 18MM Used *[id number] 12:45 [employer]TR[employer]IC STENT, 4.0 18MM MONCHO 4.0 18MM Used *[id number] 12:47 [employer]eraRx 30 DEION INDEFLATOR Used *[id number] BAND, RADIAL COMPRESSION TR [id number] 12:56 [employer]era[employer] 29CM Used LARGE 29 *[id number] SHEATH, FR6 RADIAL PRELUDE 12:14 [employer]era[employer] FR 6 [id number] Used EASE 11CM [id number] 12:14 [employer] WIRE, EXCHANGE 260CM 3MMJ 260CM Used *[id number] 12:14 NAMIC MANIFOLD, 4 PORT * Used *[id number] 12:14 NYCOMED OMNIPAQUE, 350 MG, 150ML 150ML [id number] Used WIRE, RUNTHROUGH NS FLOPPY [id number] 12:36 Ushahidi 180CM Used .014 180CM *[id number] Equipment Model, Serial, Lot Number and Expiration Data Description Model Number Serial Number Lot Number Expiration Date BAND, RADIAL COMPRESSION TR [id number] 12-24-2019 LARGE 29 STENT, 3.0 18MM MONCHO [id number] 02-01-2020 STENT, 4.0 18MM MONCHO [id number] 11-21-2019 Labs Hgb (g/dl) Hct (%) 11.60-17.00 35.00-51.00 12.1 34.7 BUN (mg/dl) Creatinine (mg/dl) BUN:Creatinine (1:x) 7.00-18.00 0.50-1.30 10.00-20.00 24 1.9 12.6 Na (meq/l) K (meq/l) 136.00-145.00 3.50-5.10 142 4.1 Troponin I (ng/ml) CPK-MB (ng/ML) 0.02-0.05 0.50-3.60 2.17 Not Drawn Medication Medication Total Dose (Bolus/Oral) Medication Total Dosage/Unit 1% XYLOCAINE 20 mL ADENOSINE 36 mcg ANGIOMAX BOLUS 15 mL FENTANYL 50 mcg HEPARIN 5000 units NTG (IC) 200 mcg PLAVIX 600 mg VERSED 1 mg Medications (Bolus/Oral) Medication Time Given Dosage/Unit Administered By Reason 08/06/2018 12:20:00 VERSED 1 mg Elo Nuñez 1 mg VERSED given in lab by Elo Nuñez RN via Peripheral IV. 08/06/2018 12:21:00 FENTANYL 50 mcg Elo Nuñez 50 mcg FENTANYL given in lab by Elo Nuñez, ALF via Peripheral IV. 08/06/2018 12:21:20 1% XYLOCAINE 20 mL Jose Berg PM Patient arrived on 20 mL 1% XYLOCAINE given by Jose Berg via Subcutaneous. 08/06/2018 12:22:52 HEPARIN 5000 units Elo Nuñez 5000 units HEPARIN given in lab by Elo Nuñez, ALF via Peripheral IV. 08/06/2018 12:23:30 NTG (IC) 100 mcg Jose Berg PM 100 mcg NTG (IC) given in lab by Jose Berg via Intra-coronary. 08/06/2018 12:41:57 ANGIOMAX BOLUS 15 mL Elo Nuñez PM 15 mL ANGIOMAX BOLUS given in lab by Elo Nuñez, ALF via Peripheral IV. 08/06/2018 12:44:19 ADENOSINE 18 mcg Jose Berg PM 18 mcg ADENOSINE given in lab by Jose Berg via Intra-coronary. 08/06/2018 12:44:43 NTG (IC) 100 mcg Jose Berg PM 100 mcg NTG (IC) given in lab by Jose Berg via Intra-coronary. 08/06/2018 12:48:23 ADENOSINE 18 mcg Jsoe Berg PM 18 mcg ADENOSINE given in lab by Jose Berg via Intra-coronary. PLAVIX 08/06/2018 1:05:48 PM 600 mg Elo Nuñez 600 mg PLAVIX given in lab by Elo Nuñez, ALF via Oral. Medication (Drip) Medication Time Given Dosage/Unit Concentration/Unit Diluent (ml) Solution 08/06/2018 12:44:00 ANGIOMAX DRIP 1.75 mg/kg/hr 250 mg 50 NaCl .9 PM 1.75 mg/kg/hr ANGIOMAX DRIP given in lab by Elo Nuñez, ALF via Peripheral IV. Pump/Drip Flow = 35 ml/hr using NaCl .9 with a concentration of 250 mg in 50 ml. 08/06/2018 12:12:18 IV Solutions 50 mL (IV) 500 NaCl .9 PM Patient arrived on IV Solutions via Peripheral IV. Pump/Drip Flow using NaCl .9. Chronological Log Time Study Chronological Log 12:03:58 Patient arrived via Bed. 12:03:59 Patient Name, D.O.B, / Armband Verified By R.N. 12:04:00 Consent signed by the physician and the patient and verified by the Washing [employer] Puller staff. 12:04:02 Pre-op and post- op instructions given; patient acknowledges understanding of instruction s. Vitals capture started with the following parameters, Patient=Adult, Interval=5 min, Initial Acmavosn=175 mmHg, 12:08:31 Deflation Rate=5 mmHg, Cuff placed on Left Arm 12:09:10 HR=90 bpm, SEJS=187/74 mmhg, SpO2=97.0 %, Resp=20 B/min, Pain=0, Mike=10, Marlow=2 12:11:42 Skin Breakdown- none 12:11:57 A # 20 IV was noted in the Forearm (right). Grade = 0 12:12:18 Patient arrived on IV Solutions via Peripheral IV. Pump/Drip Flow using NaCl .9. 12:14:11 HR=51 bpm, VZOM=149/72 mmhg, SpO2=96.0 %, Resp=16 B/min, Pain=0, Mike=10, Marlow=2 12:14:23 Left radial and groin(s) prepped with 2% chlorhexidine, and draped after a 3 min. waiting t zak. 12:17:50 Reference ECG taken Time Out. Correct patient, correct procedure, correct physician, labs, allergies, and equipment verified with cathead operator 12:17:57 team present. Fire risk assesment completed (see hard stop sheet for coding). Time Out Conc urred by MD and individual staff in procedure. 12:18:04 Case Start 12:19:13 HR=50 bpm, GPKB=374/79 mmhg, SpO2=97.0 %, Resp=13 B/min, Pain=0, Mike=10, Marlow=2 12:20:00 1 mg VERSED given in lab by Elo Nuñez, ALF via Peripheral IV. 12:21:00 50 mcg FENTANYL given in lab by Elo Nuñez, ALF via Peripheral IV. 12:21:20 Patient arrived on 20 mL 1% XYLOCAINE given by Jose Berg via Subcutaneous. 12:21:47 Pressure channel 2 zeroed. 12:22:17 Access site was Right Radial Artery . A SHEATH, FR6 RADIAL PRELUDE EASE 11CM FR 6 was advanced into the Radial (left) using the Radha aguilar 12:22:30 technique. 12:22:52 5000 units HEPARIN given in lab by Elo Nuñez, ALF via Peripheral IV. 12:23:17 In the Radial (left) the SHEATH, FR6 RADIAL PRELUDE EASE 11CM FR [address] by Jose Berg. 12:23:30 100 mcg NTG (IC) given in lab by Jose Berg via Intra-coronary. 12:24:10 HR=61 bpm, OOJZ=016/78 mmhg, SpO2=95.0 %, Resp=16 B/min, Pain=0, Mike=10, Marlow=2 A JL 4.0 INFINITI CATHETER FR 5 was advanced over a wire. OMNIPAQUE, 350 MG, 150ML 150ML was us ed for 12:24:15 injections. 12:25:20 A WIRE, EXCHANGE 260CM 3MMJ 260CM was inserted via Radial (left). 12:27:30 Wire removed Recorded Pressure: Ao, HR=59, Condition=Condition 1 12:27:56 (Aorta) Ao 130/66/92 12:28:11 The LCA was injected and visualized at various angles. OMNIPAQUE, 350 MG, 150ML 150ML used . After removing the current catheter a JR 4.0 INFINITI CATHETER FR 5 was advanced over a WIRE, E XCHANGE 260CM 12:28:24 3MMJ 260CM. 12:29:09 HR=57 bpm, UTKR=325/69 mmhg, SpO2=91.0 %, Resp=13 B/min, Pain=0, Mike=10, Marlow=2 12:30:02 The RCA was injected and visualized at various angles. OMNIPAQUE, 350 MG, 150ML 150ML used . 12:32:49 The SVG-OM 1 was injected and visualized at various angles. OMNIPAQUE, 350 MG, 150ML 150ML used. 12:33:31 The SVG-LAD was injected and visualized at various angles. OMNIPAQUE, 350 MG, 150ML 150ML u sed. 12:34:42 HR=61 bpm, CVTW=011/79 mmhg, SpO2=95.0 %, Resp=12 B/min, Pain=0, Mike=10, Marlow=2 After removing the current catheter a STEPHANIE INFINITI CATHETER FR 5 was advanced over a WIRE, EXCH LUKAS 260CM 12:34:57 3MMJ 260CM. 12:36:32 The IQBAL-DIAG1 was injected and visualized at various angles. OMNIPAQUE, 350 MG, 150ML 150M L used. After removing the current catheter a LCB GUIDE CATHETER FR 6 was advanced over a WIRE, EXCHANG E 260CM 3MMJ 12:38:58 260CM. 12:39:07 HR=60 bpm, UMPD=162/77 mmhg, SpO2=95.0 %, Resp=11 B/min, Pain=0, Mike=10, Marlow=2 12:40:30 The previous wire was exchanged for a WIRE, RUNTHROUGH NS FLOPPY .014 180CM 180CM. 12:41:57 15 mL ANGIOMAX BOLUS given in lab by Elo Nuñez, RN via Peripheral IV. 1.75 mg/kg/hr ANGIOMAX DRIP given in lab by Elo Nuñez, RN via Peripheral IV. Pump/Drip Gabriel w = 35 ml/hr using 12:44:00 NaCl .9 with a concentration of 250 mg in 50 ml. 12:44:08 HR=62 bpm, ZPSN=405/79 mmhg, SpO2=95.0 %, Resp=11 B/min, Pain=0, Mike=10, Marlow=2 12:44:19 18 mcg ADENOSINE given in lab by Jose Berg via Intra-coronary. 12:44:43 100 mcg NTG (IC) given in lab by Jose Berg via Intra-coronary. 12:45:39 Interventional wire has crossed the lesion A STENT, 4.0 18MM MONCHO 4.0 18MM was advanced through a LCB GUIDE CATHETER FR 6 over a WIRE, EX CHANGE 12:46:01 260CM 3MMJ 260CM. A STENT, 4.0 18MM MONCHO 4.0 18MM was deployed using a 30 DEION INDEFLATOR at 16 atmospheres for 1 5 seconds in 12:46:52 the SVG-LAD. A STENT, 4.0 18MM MONCHO 4.0 18MM was deployed using a 30 DEION INDEFLATOR at 16 atmospheres for 1 5 seconds in 12:47:24 the SVG-LAD. 12:48:00 Delivery device removed 12:48:23 18 mcg ADENOSINE given in lab by Jose Berg via Intra-coronary. 12:49:13 HR=63 bpm, ECEU=137/72 mmhg, SpO2=96.0 %, Resp=16 B/min, Pain=0, Mike=10, Marlow=2 A STENT, 3.0 18MM MONCHO 3.0 18MM was advanced through a LCB GUIDE CATHETER FR 6 over a WIRE, RU NTHROUGH 12:52:35 NS FLOPPY .014 180CM 180CM. 12:54:06 HR=47 bpm, LLCU=906/74 mmhg, SpO2=96.0 %, Resp=12 B/min, Pain=0, Mike=10, Marlow=2 A STENT, 3.0 18MM MONCHO 3.0 18MM was deployed using a 30 DEION INDEFLATOR at 18 atmospheres for 1 5 seconds in 12:55:01 the SVG-OM 1. 12:55:40 Delivery device removed 12:56:39 Case End (Physician broke scrub) 12:59:52 HR=60 bpm, KMFW=566/81 mmhg, SpO2=97.0 %, Resp=16 B/min, Pain=0, Mike=10, Marlow=2 13:02:58 Vitals capture stopped. 13:05:48 600 mg PLAVIX given in lab by Elo Nuñez RN via Oral. 13:07:05 Sheath removed; Radial Compression Device Used. 13 mLs of air placed in BAND, RADIAL COMPRESSION TR LARGE 29 2 9CM. Affected 13:07:13 hand 99 % O2 saturation. 13:10:36 Patient moved to stretcher 13:14:32 A Left Heart Cath was performed. End Study - Contrast Media Used In Study Contrast Total Opened (mL) Total Used (mL) Total Wasted (mL) Omnipaque 300 100 100 0 End Study - Maximum Contrast Load Max Contrast Load (mL) 263.2 End Study - Radiation Exposure Fluoro Time (minutes) 9.0 End Study - Patient Disposition Complications Transferred To Interventional Outcome No Telemetry Bed successful
[2018-08-06] MEDS ORDERED: Iohexol 350 MG/ML 100 ML Vial (for Cath Lab) IVCONTRAST ONE (15:24)
--- NOTE | 2018-08-06 16:15 | P.PNIM ---
Subjective Interval history: The patient was resting in bed. He was hoping to go home tomorrow. He had no acute complaints. His family was at the bedside and their questions were answered. Discussed with nursing. Physical Exam Vital signs: Vital Signs 08/05/18 17:33 08/05/18 20:00 08/06/18 00:00 Temperature 97.8 F 98.9 F 97.5 F L Pulse Rate 52 L 67 68 Respiratory Rate 18 15 17 Blood Pressure 181/79 H 178/87 H 190/83 H Pulse Oximetry 97 97 97 08/06/18 01:25 08/06/18 01:54 08/06/18 05:20 Temperature Pulse Rate 53 L 56 L Respiratory Rate 16 16 Blood Pressure 123/60 Pulse Oximetry 95 08/06/18 08:00 08/06/18 09:00 08/06/18 11:06 Temperature 99.1 F Pulse Rate 54 L 56 L Respiratory Rate 18 16 Blood Pressure 137/73 Pulse Oximetry 97 08/06/18 12:00 08/06/18 12:03 08/06/18 14:46 Temperature 98.7 F Pulse Rate 51 L Respiratory Rate 16 17 Blood Pressure 124/70 Pulse Oximetry 95 97 Intake & Output 08/05/18 08/06/18 08/06/18 18:59 06:59 18:59 Intake Total 530 / 530 Output Total 850 / 850 Balance -320 / -320 Weight 94.347 kg 100 kg Intake: IV 50 / 50 Flexbumin 25% Inj 50 ML @ 60 50 / 50 mls/hr IV.SIG Q12H [facility] Rx#: [id number] Oral 480 / 480 Output: Urine 850 / 850 Other: # Voids 0 4 Weight On Admission 94.347 kg Narrative: GENERAL: NAD. SKIN: Warm and dry. HEAD: Normocephalic. EYES: No scleral icterus. No injection or drainage. NECK: Supple, trachea midline. No JVD or lymphadenopathy. CARDIOVASCULAR: Regular rate and rhythm with soft murmur, gallops, or rubs. RESPIRATORY: Breath sounds equal bilaterally. No accessory muscle use. GASTROINTESTINAL: Abdomen soft, non-tender, nondistended. MUSCULOSKELETAL: No cyanosis, or edema. . Results - Labs CBC & Chem 7: 08/06/18 04:00 08/06/18 01:22 Laboratory Results - last 24 hr 11/08/1208/05/18 08/05/18 13:35 13:35 17:22 WBC RBC Hgb Hct MCV MCH MCHC RDW Plt Count MPV PT 10.4 INR 1.0 APTT 28.0 Sodium Potassium Chloride Carbon Dioxide Anion Gap BUN Creatinine Estimated GFR POC Glucose 243 H Random Glucose Calcium Troponin I 0.09 H 08/05/18 08/05/18 08/05/18 20:50 20:50 21:45 WBC RBC Hgb Hct MCV MCH MCHC RDW Plt Count MPV PT 11.2 INR 1.1 APTT 66.9 H D Sodium Potassium Chloride Carbon Dioxide Anion Gap BUN Creatinine Estimated GFR POC Glucose 294 H Random Glucose Calcium Troponin I 2.17 H* 08/06/18 08/06/18 08/06/18 01:22 01:22 04:00 WBC RBC Hgb Hct MCV MCH MCHC RDW Plt Count MPV PT INR APTT 48.5 H D Sodium 142 Potassium 4.1 Chloride 106 Carbon Dioxide 25.9 Anion Gap 10 BUN 24 H Creatinine 1.98 H Estimated GFR 33 L POC Glucose Random Glucose 198 H Calcium 8.7 Troponin I Cancelled 7.79 H* 08/06/18 08/06/18 08/06/18 04:00 08:05 11:53 WBC 10.5 RBC 3.80 L Hgb 12.1 L Hct 34.7 L MCV 91.2 MCH 31.9 MCHC 35.0 RDW 12.9 Plt Count 180 MPV 9.4 PT INR APTT Sodium Potassium Chloride Carbon Dioxide Anion Gap BUN Creatinine Estimated GFR POC Glucose 251 H 215 H Random Glucose Calcium Troponin I Assessment and Plan - Plan 82-year-old male being admitted for atypical angina. Significant CAD hx. Atypical angina/chest pressure With elevated troponins and inferior T wave inversions. Started on heparin drip. Continued aspirin, statin. Echo with normal EF. Cardiology was consulted. S/p cath: Severe [place] three-vessel coronary artery disease; 3 of 4 visualized coronary bypass grafts are patent; Percutaneous coronary intervention to the saphenous vein graft to left anterior descending and saphenous vein graft to the obtuse marginal branches with drug-eluting stents. -follow up with cardiology. -telemetry. Renal insufficiency Hard to decipher acute versus chronic element, no baseline evident at this time. IVFs. -check UA, calculate FENa. Diabetes Sliding scale with Accu-Cheks -add Levemir 10 units HS. History of asthma Albuterol as needed for wheezing/shortness of breath Obstructive sleep apnea CPAP nighttime settings at 11 mmHg Heparin gtt
[2018-08-06] MEDS: Sod Chloride 0.9% Inj 1,000 ML IV.CONT SCH (19:04)
[2018-08-06] MEDS ORDERED: Insulin Detemir Inj 1,000 UNIT/10 ML Vial SQ SCH (21:00)
[2018-08-07] MEDS: Sod Chloride 0.9% Inj 1,000 ML IV.CONT SCH (00:53)
[2018-08-07 01:27] LABS: Bilirubin,Urine Negative (Negative); Clarity,Urine Clear (Clear); Color,Urine Yellow (Yellw/Straw); Glucose,Urine (UA) 150 mg/dL (Negative); Leukocyte Esterase,Urine Negative (Negative); Mucus,Urine Few /lpf (Occasional); Nitrite,Urine Negative (Negative); Specific Gravity,Urine 1.025 (1.002-1.035)
[2018-08-07 01:39] LABS: Creatinine,Urine Random 126 mg/dL (27-300)
[2018-08-07] MEDS: Albumin Human 25% Inj 50 ML IV.SIG SCH (04:48)
[2018-08-07 05:54] LABS: Baso % (Auto) 0.2 % (0.0-2.0); Eos # (Auto) 0.1 th/mm3 (0.0-0.4); Eos % (Auto) 0.7 % (0.0-4.0); Hematocrit 32.7 % (39.0-51.0); Hemoglobin 11.3 gm/dL (13.0-17.0); Lymph # (Auto) 1.3 th/mm3 (1.0-4.8); Lymph % (Auto) 11.8 % (9.0-44.0); Mean Corpuscular HGB Conc 34.7 % (32.0-36.0); Mean Corpuscular Hemoglobin 32.2 pg (27.0-34.0); Mean Corpuscular Volume 92.9 fL (80.0-100.0); Mean Platelet Volume 9.2 fL (7.0-11.0); Mono # (Auto) 1.4 th/mm3 (0.0-0.9); Mono % (Auto) 12.9 % (0.0-8.0); Neut # (Auto) 7.9 th/mm3 (1.8-7.7); Neut % (Auto) 74.4 % (16.0-70.0); Platelet Count 154 th/mm3 (150-450); Red Blood Count 3.52 mil/mm3 (4.50-5.90); Red Cell Distribution Width 13.1 % (11.6-17.2); White Blood Count 10.6 th/mm3 (4.0-11.0)
[2018-08-07 06:12] LABS: Calcium 8.1 mg/dL (8.5-10.1); Carbon Dioxide 23.4 meq/L (21.0-32.0); Potassium 3.9 meq/L (3.5-5.1)
[2018-08-07 06:15] LABS: Chol/HDL Ratio 3.94 Ratio; HDL Cholesterol 31.2 mg/dL (40.0-60.0)
[2018-08-07 06:30] LABS: CKMB Percent 3.3 % (0.0-4.0); Creatine Kinase MB 18.3 ng/mL (0.5-3.6)
[2018-08-07] MEDS ORDERED: Isosorbide Mononitrate 60 MG ER 24HR Tablet (Imdur) PO SCH (07:00)
[2018-08-07] MEDS ORDERED: Sod Chloride 0.9% Inj 1,000 ML IV.CONT SCH (07:32)
--- NOTE | 2018-08-07 07:53 | P.PNCA ---
Subjective Interval history: feeling well and "ready to go home". no chest pain, sob, palpitations Medications and Allergies Active Medications: Active Medications Albuterol (Ventolin Hfa Inh) 2 puff INH Q4HR PRN PRN Reason: WHEEZING Aspirin (Aspirin Chew) 81 mg PO DAILY [facility] Last Admin: 08/06/18 09:40 Dose: 81 mg Atorvastatin Calcium (Lipitor) 40 mg PO HS [facility] Last Admin: 08/06/18 22:20 Dose: 40 mg Atropine Sulfate (Atropine Inj) 0.5 mg IV.PUSH UNSCH PRN PRN Reason: VAGAL REPONSE Clopidogrel Bisulfate (Plavix) 75 mg PO DAILY [facility] Dextrose (D50w Vial) 50 ml IV.PUSH UNSCH PRN PRN Reason: PER HYPOGLYCEMIA PROTOCOL Glucagon (Glucagon Inj) 1 mg OTHER PRN PRN PRN Reason: for Hypoglycemia Protocol Albumin Human (Flexbumin 25% Inj) 50 mls @ 60 mls/hr IV.SIG Q12H [facility] Last Infusion: 08/07/18 05:55 Dose: Infused Sodium Chloride (Ns Inj) 1,000 mls @ 100 mls/hr IV.CONT .Q10H [facility] Stop: 08/07/18 17:31 Insulin Aspart (Novolog Insulin Correctional Sugar Inj) 0 unit SQ [facility]; Protocol Last Admin: 08/06/18 22:20 Dose: 1 unit Insulin Detemir (Levemir Inj) 10 unit SQ [facility] Last Admin: 08/06/18 22:20 Dose: 10 unit Isosorbide Mononitrate (Imdur) 60 mg PO DAILY@0700 [facility] Last Admin: 08/07/18 06:00 Dose: 60 mg Lidocaine HCl (Xylocaine 1% Inj (50 Ml)) 10 ml INFILTRATN UNSCH PRN PRN Reason: SHEATH REMOVAL Stop: 08/07/18 12:55 Lorazepam (Ativan Inj) 0.5 mg IV.PUSH UNSCH PRN PRN Reason: ANXIETY Stop: 08/07/18 12:55 Metoprolol Tartrate (Lopressor) 50 mg PO BID [facility] Last Admin: 08/06/18 22:20 Dose: 50 mg Morphine Sulfate (Morphine Inj) 2 mg IV.PUSH Q3H PRN PRN Reason: CHEST PAIN Sodium Chloride (Ns Flush) 2 ml IV.FLUSH PRN PRN PRN Reason: FLUSH AFTER USING IV ACCESS Sodium Chloride (Ns Flush) 2 ml IV.FLUSH BID [facility] Last Admin: 08/06/18 22:20 Dose: 2 ml Allergies Allergy/AdvReac Type Severity Reaction Status Date / Time No Known Allergies Allergy Verified 08/05/18 13:37 Home Medications Medication Instructions Recorded Confirmed Type aspirin 81 mg PO DAILY 08/05/18 08/05/18 History Physical Exam Vital signs: Vital Signs 08/06/18 08:00 08/06/18 09:00 08/06/18 11:06 Temperature 99.1 F Pulse Rate 54 L 56 L Respiratory Rate 18 16 Blood Pressure 137/73 Pulse Oximetry 97 08/06/18 12:00 08/06/18 12:03 08/06/18 12:57 Temperature 98.7 F 98.7 F Pulse Rate 51 L 54 L Respiratory Rate 16 18 Blood Pressure 124/70 130/78 Pulse Oximetry 95 97 97 08/06/18 14:46 08/06/18 16:42 08/06/18 19:00 Temperature 98.3 F Pulse Rate 55 L 53 L Respiratory Rate 17 18 Blood Pressure 130/78 Pulse Oximetry 96 08/06/18 19:42 08/06/18 20:00 08/06/18 20:59 Temperature 98.4 F Pulse Rate 61 52 L Respiratory Rate 20 Blood Pressure 159/66 H Pulse Oximetry 96 96 96 08/06/18 21:00 08/06/18 22:00 08/06/18 23:00 Temperature 98.0 F Pulse Rate 54 L 78 54 L Respiratory Rate 20 Blood Pressure 131/76 Pulse Oximetry 95 08/07/18 00:00 08/07/18 01:00 08/07/18 02:00 Temperature Pulse Rate 61 52 L 51 L Respiratory Rate Blood Pressure Pulse Oximetry 08/07/18 03:00 08/07/18 04:00 08/07/18 05:00 Temperature 99.8 F H Pulse Rate 56 L 50 L 52 L Respiratory Rate 20 Blood Pressure 139/75 Pulse Oximetry 97 08/07/18 06:00 Temperature Pulse Rate 55 L Respiratory Rate Blood Pressure Pulse Oximetry Intake & Output 08/06/18 08/07/18 08/07/18 18:59 06:59 18:59 Intake Total 240 / 240 1340 / 1340 Output Total 900 / 900 520 / 520 Balance -660 / -660 820 / 820 Weight 101.5 kg Intake: IV 1100 / 1100 NS Inj 1,000 ML @ 100 mls/hr IV 1000 / 1000 .CONT .Q10H [facility] Rx#:[id number] Flexbumin 25% Inj 50 ML @ 60 100 / 100 mls/hr IV.SIG Q12H [facility] Rx#: [id number] Oral 240 / 240 240 / 240 Output: Urine 900 / 900 520 / 520 Narrative: GENERAL: NAD. SKIN: Warm and dry. HEAD: Normocephalic. EYES: No scleral icterus. No injection or drainage. NECK: Supple, trachea midline. No JVD or lymphadenopathy. CARDIOVASCULAR: Regular rate and rhythm with soft murmur, gallops, or rubs. RESPIRATORY: Breath sounds equal bilaterally. No accessory muscle use. GASTROINTESTINAL: Abdomen soft, non-tender, nondistended. MUSCULOSKELETAL: No cyanosis, or edema. . Results 08/07/18 05:39 08/07/18 05:39 Cardiac Enzymes 08/05/18 08/05/18 08/05/18 Range/Units 13:35 13:35 13:35 AST 38 H (15-37) U/L CK-MB (CK-2) 2.7 (0.5-3.6) ng/mL Troponin I 0.09 H (0.02-0.05) ng/mL B-Natriuretic Peptide 63 (0-100) pg/mL 08/05/18 08/05/18 08/06/18 Range/Units 13:35 20:50 01:22 AST (15-37) U/L CK-MB (CK-2) (0.5-3.6) ng/mL Troponin I 0.09 H 2.17 H* Cancelled (0.02-0.05) ng/mL B-Natriuretic Peptide (0-100) pg/mL 08/06/18 08/07/18 Range/Units 01:22 05:39 AST (15-37) U/L CK-MB (CK-2) 18.3 H (0.5-3.6) ng/mL Troponin I 7.79 H* (0.02-0.05) ng/mL B-Natriuretic Peptide (0-100) pg/mL Coagulation 08/05/18 08/05/18 08/05/18 Range/Units 13:35 13:35 20:50 PT 10.4 11.2 (9.8-11.6) sec APTT 28.0 66.9 H D (23.4-31.7) sec B-Natriuretic Peptide 63 (0-100) pg/mL 08/06/18 Range/Units 04:00 PT (9.8-11.6) sec APTT 48.5 H D (23.4-31.7) sec B-Natriuretic Peptide (0-100) pg/mL Lipids 08/07/18 Range/Units 05:39 Triglycerides 108 (42-150) mg/dL Cholesterol 123 (120-200) mg/dL HDL Cholesterol 31.2 L (40.0-60.0) mg/dL Cholesterol/HDL Ratio 3.94 Ratio CBC 08/05/18 08/06/18 08/07/18 Range/Units 13:35 04:00 05:39 WBC 7.6 10.5 10.6 (4.0-11.0) th/mm3 RBC 4.02 L 3.80 L 3.52 L (4.50-5.90) mil/mm3 Hgb 12.8 L 12.1 L 11.3 L (13.0-17.0) gm/dL Hct 37.3 L 34.7 L 32.7 L (39.0-51.0) % Plt Count 175 180 154 (150-450) th/mm3 Neut # (Auto) 5.3 7.9 H (1.8-7.7) th/mm3 Lymph # (Auto) 1.2 1.3 (1.0-4.8) th/mm3 [place] # (Auto) 0.9 1.4 H (0.0-0.9) th/mm3 Eos # (Auto) 0.2 0.1 (0.0-0.4) th/mm3 Baso # (Auto) 0.0 0.0 (0.0-0.2) th/mm3 Comprehensive Metabolic Panel 08/05/18 08/06/18 08/07/18 Range/Units 13:35 01:22 05:39 Sodium 139 142 141 (136-145) meq/L Potassium 4.5 4.1 3.9 (3.5-5.1) meq/L Chloride 105 106 108 H (98-107) meq/L Carbon Dioxide 25.8 25.9 23.4 (21.0-32.0) meq/L BUN 25 H 24 H 23 H (7-18) mg/dL Creatinine 1.95 H 1.98 H 1.56 H (0.60-1.30) mg/dL Calcium 8.6 8.7 8.1 L (8.5-10.1) mg/dL AST 38 H (15-37) U/L ALT 62 (12-78) U/L Alkaline Phosphatase 120 H (45-117) U/L Total Protein 7.0 (6.4-8.2) g/dL Albumin 3.7 (3.4-5.0) g/dL Intake and Output 08/06/18 08/07/18 08/07/18 22:59 06:59 14:59 Intake Total 290 / 290 1290 / 1290 Output Total 900 / 900 520 / 520 Balance -610 / -610 770 / 770 Intake: IV 50 / 50 1050 / 1050 NS Inj 1,000 ML @ 100 mls/hr IV 1000 / 1000 .CONT .Q10H [facility] Rx#:[id number] Flexbumin 25% Inj 50 ML @ 60 50 / 50 50 / 50 mls/hr IV.SIG Q12H [facility] Rx#: [id number] Oral 240 / 240 240 / 240 Output: Urine 900 / 900 520 / 520 Other: Weight 101.5 kg - Imaging and Cardiology Imaging: Impressions Chest X-Ray 08/05/18 13:37 CONCLUSION: Postoperative CABG. No acute findings. Assessment and Plan - Assessment (1) Chest pain Code(s): R07.9 - Chest pain, unspecified Status: Acute (2) Elevated troponin Code(s): R74.8 - Abnormal levels of other serum enzymes Status: Acute - Plan 82 yo M with CAD, CABG (1989) with stenting x 2 (2011 in [place], [place]), CKD, DMII, HTN and sleep apnea who presents after experiencing 2 episodes of chest pain yesterday. NSTEMI- s/p PCI yesterday. 3/4 bypass grafts patent. AMARILYS to SVG-LAD and SVG-1st obtuse isosorbide 60mg added feeling well with no reoccurrence of chest pain EF 55-60% renal function improved cont asa, atorvastatin 40mg, plavix, isosorbide, metoprolol ok for discharge (1) Chest pain Qualifiers: Chest pain type: unspecified Qualified Code(s): R07.9 - Chest pain, unspecified
[2018-08-07 09:15] VITALS: O2SAT 95
[2018-08-07] MEDS: Metoprolol Tartrate 50 MG Tablet PO SCH (09:15)
[2018-08-07] MEDS: Insulin NovoLOG Aspart Correctional Sugar Inj SQ SCH (09:20)
[2018-08-07 09:40] VITALS: BP 127/64; RESP 16; TEMP 98.3
[2018-08-07 09:42] VITALS: PULSE 55
--- NOTE | 2018-08-07 10:03 | P.PNIM ---
Subjective Interval history: The patient was feeling well and wanted to go home. He had questions about drinking alcohol. He said that he was planning on going on a cruise in August. He had questions about which doctor he can follow with in the area. Discussed with his family at the bedside. Discussed with nursing. Physical Exam Vital signs: Vital Signs 08/06/18 11:06 08/06/18 12:00 08/06/18 12:03 Temperature 98.7 F Pulse Rate 51 L Respiratory Rate 16 16 Blood Pressure 124/70 Pulse Oximetry 95 97 08/06/18 12:57 08/06/18 14:46 08/06/18 16:42 Temperature 98.7 F 98.3 F Pulse Rate 54 L 55 L Respiratory Rate 18 17 18 Blood Pressure 130/78 130/78 Pulse Oximetry 97 96 08/06/18 19:00 08/06/18 19:42 08/06/18 20:00 Temperature 98.4 F Pulse Rate 53 L 61 52 L Respiratory Rate 20 Blood Pressure 159/66 H Pulse Oximetry 96 96 08/06/18 20:59 08/06/18 21:00 08/06/18 22:00 Temperature Pulse Rate 54 L 78 Respiratory Rate Blood Pressure Pulse Oximetry 96 08/06/18 23:00 08/07/18 00:00 08/07/18 01:00 Temperature 98.0 F Pulse Rate 54 L 61 52 L Respiratory Rate 20 Blood Pressure 131/76 Pulse Oximetry 95 08/07/18 02:00 08/07/18 03:00 08/07/18 04:00 Temperature 99.8 F H Pulse Rate 51 L 56 L 50 L Respiratory Rate 20 Blood Pressure 139/75 Pulse Oximetry 97 08/07/18 05:00 08/07/18 06:00 08/07/18 07:00 Temperature 98.3 F Pulse Rate 52 L 55 L 55 L Respiratory Rate 16 Blood Pressure 127/64 Pulse Oximetry 96 08/07/18 08:00 08/07/18 09:00 08/07/18 09:14 Temperature Pulse Rate 56 L 55 L Respiratory Rate Blood Pressure Pulse Oximetry 96 95 Intake & Output 08/06/18 08/07/18 08/07/18 18:59 06:59 18:59 Intake Total 240 / 240 1340 / 1340 Output Total 900 / 900 520 / 520 Balance -660 / -660 820 / 820 Weight 101.5 kg Intake: IV 1100 / 1100 NS Inj 1,000 ML @ 100 mls/hr IV 1000 / 1000 .CONT .Q10H NAVARRO Rx#:[id number] Flexbumin 25% Inj 50 ML @ 60 100 / 100 mls/hr IV.SIG Q12H NAVARRO Rx#: [id number] Oral 240 / 240 240 / 240 Output: Urine 900 / 900 520 / 520 Narrative: GENERAL: NAD. SKIN: Warm and dry. HEAD: Normocephalic. EYES: No scleral icterus. No injection or drainage. NECK: Supple, trachea midline. No JVD or lymphadenopathy. CARDIOVASCULAR: Regular rate and rhythm with no murmur, gallops, or rubs. RESPIRATORY: Breath sounds equal bilaterally. No accessory muscle use. GASTROINTESTINAL: Abdomen soft, non-tender, nondistended. MUSCULOSKELETAL: No cyanosis, or edema. Results - Labs CBC & Chem 7: 08/07/18 05:39 08/07/18 05:39 Laboratory Results - last 24 hr 08/06/18 08/06/18 08/06/18 11:53 16:48 22:15 WBC RBC Hgb Hct MCV MCH MCHC RDW Plt Count MPV Neut % (Auto) Lymph % (Auto) Pratt % (Auto) Eos % (Auto) Baso % (Auto) Neut # (Auto) Lymph # (Auto) Pratt # (Auto) Eos # (Auto) Baso # (Auto) WBC Differential Differential Comment Sodium Potassium Chloride Carbon Dioxide Anion Gap BUN Creatinine Estimated GFR POC Glucose 215 H 280 H 167 H Random Glucose Calcium Total Creatine Kinase CK-MB (CK-2) CK-MB (CK-2) % Triglycerides Cholesterol LDL Cholesterol, Calc HDL Cholesterol Cholesterol/HDL Ratio Urine Color Urine Clarity Urine pH Ur Specific [place] Urine Protein Urine Glucose (UA) Urine Ketones Urine Occult Blood Urine Nitrate Urine Bilirubin Urine Urobilinogen Ur Leukocyte Esterase Urine RBC Urine WBC Urine Mucus Micro UA Comment Ur Microscopic Review Urine Culture Comments Ur Random Creatinine Ur Random Sodium 08/07/18 08/07/18 08/07/18 00:44 00:44 05:39 WBC 10.6 RBC 3.52 L Hgb 11.3 L Hct 32.7 L MCV 92.9 MCH 32.2 MCHC 34.7 RDW 13.1 Plt Count 154 MPV 9.2 Neut % (Auto) 74.4 H Lymph % (Auto) 11.8 Pratt % (Auto) 12.9 H Eos % (Auto) 0.7 Baso % (Auto) 0.2 Neut # (Auto) 7.9 H Lymph # (Auto) 1.3 Pratt # (Auto) 1.4 H Eos # (Auto) 0.1 Baso # (Auto) 0.0 WBC Differential . Differential Comment Auto diff final Sodium Potassium Chloride Carbon Dioxide Anion Gap BUN Creatinine Estimated GFR POC Glucose Random Glucose Calcium Total Creatine Kinase CK-MB (CK-2) CK-MB (CK-2) % Triglycerides Cholesterol LDL Cholesterol, Calc HDL Cholesterol Cholesterol/HDL Ratio Urine Color Yellow Urine Clarity Clear Urine pH 6.0 Ur Specific [place] 1.025 Urine Protein Negative Urine Glucose (UA) 150 H Urine Ketones Negative Urine Occult Blood Negative Urine Nitrate Negative Urine Bilirubin Negative Urine Urobilinogen 2.0 H Ur Leukocyte Esterase Negative Urine RBC Less than 1 Urine WBC Less than 1 Urine Mucus Few H Micro UA Comment Culture not ind Ur Microscopic Review Not Reportable Urine Culture Comments Culture not ind Ur Random Creatinine 126 Ur Random Sodium 97 08/07/18 08/07/18 05:39 08:35 WBC RBC Hgb Hct MCV MCH MCHC RDW Plt Count MPV Neut % (Auto) Lymph % (Auto) [place]att % (Auto) Eos % (Auto) Baso % (Auto) Neut # (Auto) Lymph # (Auto) [place] # (Auto) Eos # (Auto) Baso # (Auto) WBC Differential Differential Comment Sodium 141 Potassium 3.9 Chloride 108 H Carbon Dioxide 23.4 Anion Gap 10 BUN 23 H Creatinine 1.56 H Estimated GFR 43 L POC Glucose 200 H Random Glucose 186 H Calcium 8.1 L Total Creatine Kinase 556 H CK-MB (CK-2) 18.3 H CK-MB (CK-2) % 3.3 Triglycerides 108 Cholesterol 123 LDL Cholesterol, Calc 70 HDL Cholesterol 31.2 L Cholesterol/HDL Ratio 3.94 Urine Color Urine Clarity Urine pH Ur Specific [place] Urine Protein Urine Glucose (UA) Urine Ketones Urine Occult Blood Urine Nitrate Urine Bilirubin Urine Urobilinogen Ur Leukocyte Esterase Urine RBC Urine WBC Urine Mucus Micro UA Comment Ur Microscopic Review Urine Culture Comments Ur Random Creatinine Ur Random Sodium Assessment and Plan - Plan 82-year-old male being admitted for atypical angina. Significant CAD hx. Atypical angina/chest pressure With elevated troponins and inferior T wave inversions. Started on heparin drip. Continued aspirin, statin. Echo with normal EF. Cardiology was consulted. S/p cath: Severe [place] three-vessel coronary artery disease; 3 of 4 visualized coronary bypass grafts are patent; Percutaneous coronary intervention to the saphenous vein graft to left anterior descending and saphenous vein graft to the obtuse marginal branches with drug-eluting stents. -follow up with cardiology as an outpt. Cleared for discharge. -continue ASA, Plavix, statin, beta radha and isosorbide. -telemetry. Renal insufficiency Pt reports chronic renal insufficiency. FENa calculated at 0.9%, indicating pre- renal etiology. Improved with IVFs. encourage hydration. Diabetes Sliding scale with Accu-Cheks -add Levemir 10 units HS. -[facility]. History of asthma Albuterol as needed for wheezing/shortness of breath Obstructive sleep apnea CPAP nighttime settings at 11 mmHg PPx: Heparin Discharge Planning: d/c home
--- NOTE | 2018-08-07 12:54 | ECG ---
Date Performed: 08/06/2018 Time Performed: 21:18:16 PTAGE: 82 years EKG: Sinus bradycardia with PAC(s) with 1st degree A-V block Inferior/lateral ST-T changes may b e due to myocardial ischemia Since the previous tracing, no significant change noted Abnormal ECG PREVIOUS TRACING : 08/06/2018 01.24 DOCTOR: Shi Leyva Interpretating Date/Time 08/07/2018 12:50:41
--- NOTE | 2018-08-08 12:51 | ECG ---
Date Performed: 08/07/2018 Time Performed: 06:06:10 PTAGE: 82 years EKG: Sinus bradycardia with borderline 1st degree A-V block Poor R wave progression - probable n ormal variant Inferior/lateral ST-T changes may be due to myocardial ischemia Abnormal ECG PREVIOUS TRACING : 08/06/2018 21.18 DOCTOR: Jose Berg Interpretating Date/Time 08/08/2018 12:46:16
== END 2018-08-07 10:41 | disposition home or self-care (01) ==
LOC: NEPC 13:19 → NEDA 13:19 → NEPFCDU 16:55 → HCIS 08-06 04:45
PROVIDERS: ADMIT Hospitalist; ATTEND Hospitalist